=== PATIENT | female | born 1945 | race African-American/Black ===

== ENCOUNTER 2022-10-30 17:16 | Inpatient (IN) | payer OTHER, MEDICAID ==
[~2022-10-30] VITALS: Ht 154.9 cm; Wt 49.0 kg
[2022-10-30 18:22] LABS: BASOPHILS % 1.6 % (0.0-2.0); DIFFERENTIAL COMMENT 0; EOSINOPHILS % 0.8 % (0.0-5.0); HEMOGLOBIN. 15.1 g/dL (12.0-16.0); LYMPHOCYTES % 20.9 % (20.0-50.0); MEAN CORPUSCULAR HGB CONC 31.5 g/dL (31.0-37.0); MEAN CORPUSCULAR VOLUME 92.1 fL (81.0-99.0); MEAN PLATELET VOLUME 11.2 fl (7.4-10.4); MONOCYTES % 8.1 % (2.0-8.0); NEUTROPHILS % 68.6 % (40.0-76.0); PLATELET 145 x1000/uL (130-400); RED CELL DISTRIBUTION WIDTH 16.7 % (11.6-14.6); WHITE BLOOD COUNT 6.9 x1000/uL (4.5-11.0)
[2022-10-30 18:30] LABS: PROTHROMBIN TIME 10.8 sec (9.6-11.0)
[2022-10-30 18:44] LABS: CHLORIDE 116 mEq/L (98-107); INDEX HEMOLYSI 1 (1-3); INDEX ICTERIC 1 (1-4); INDEX LIPEMIC 1 (1-3); POTASSIUM 4.7 mEq/L (3.5-5.1); SODIUM 143 mEq/L (136-145)
[2022-10-30 18:54] LABS: ALANINE AMINOTRANSFERASE 23 IU/L (13-61); ALBUMIN 3.9 g/dL (3.4-5.0); ASPARTATE AMINOTRANSFERASE 29 IU/L (15-37); BILIRUBIN TOTAL 0.5 mg/dL (0.1-1.0); CALCIUM 9.7 mg/dL (8.5-10.1); CARBON DIOXIDE 23 mEq/L (21-32); CREATININE 1.7 mg/dL (0.6-1.3); GLUCOSE 89 mg/dL (70-105); PROTEIN TOTAL 8.2 g/dL (6.0-8.3); UREA NITROGEN BLOOD 68 mg/dL (7-21)
[2022-10-30 19:12] LABS: TROPONIN I HIGH SENSITIVITY 409 ng/L (<54)
[2022-10-30] MEDS ORDERED: LABETALOL 5MG/ML SYR 20 MG/4 ML SYRINGE IV ONE ×2 (20:00→22:15)
[2022-10-30] MEDS ORDERED: ASPIRIN 325MG TABLET PO ONE (21:30)
[2022-10-30] MEDS ORDERED: NITROGLYCERIN 50MG PREMIX 250 ML IV ONE (23:30)
[2022-10-30] MEDS ORDERED: NITROGLYCERIN 50 MG in DEXT 5% WATER 250 ML IV NR (23:45)
[2022-10-31] VITALS (14 sets, daily range): BP systolic 118–245; BP diastolic 75–164; PULSE 57–71; RESP 11–24; TEMP 96.5–98.6
[2022-10-31 07:25] LABS: TROPONIN I HIGH SENSITIVITY 475 ng/L (<54)
[2022-10-31] MEDS: CLONIDINE 0.1MG TABLET PO SCH ×3 (08:12→21:54)
[2022-10-31] MEDS ORDERED: NITROGLYCERIN 50 MG PREMIX 250 ML IV SCH (08:30)
[2022-10-31] MEDS: AMLODIPINE 10MG TABLET PO SCH (10:15)
[2022-10-31] MEDS: LABETALOL HCL 300MG TABLET PO SCH ×2 (10:15→21:53)
[2022-10-31] MEDS ORDERED: ACETAMINOPHEN 325MG TABLET PO PRN (10:45)
[2022-10-31] MEDS ORDERED: IPRATROPIUM/ALBUTEROL 0.5-3(2.5)MG/3ML NEB HHN PRN (10:45)
[2022-10-31] MEDS ORDERED: DOCUSATE SODIUM 100MG CAPSULE PO PRN (10:45)
[2022-10-31] MEDS ORDERED: ONDANSETRON HCL 4MG/2ML INJ IV PRN (10:45)
[2022-10-31] MEDS ORDERED: ACETAMINOPHEN 650MG/20.3ML UDC GT PRN (10:45)
[2022-10-31 12:42] LABS: BASOPHILS % 1.5 % (0.0-2.0); DIFFERENTIAL COMMENT 0; EOSINOPHILS % 3.3 % (0.0-5.0); HEMATOCRIT. 40.4 % (36.0-48.0); HEMOGLOBIN. 12.8 g/dL (12.0-16.0); LYMPHOCYTES % 27.4 % (20.0-50.0); MEAN CORPUSCULAR HEMOGLOBIN 28.8 pg (28.0-32.0); MEAN CORPUSCULAR HGB CONC 31.7 g/dL (31.0-37.0); MEAN PLATELET VOLUME 11.2 fl (7.4-10.4); MONOCYTES % 9.6 % (2.0-8.0); NEUTROPHILS % 58.2 % (40.0-76.0); PLATELET 123 x1000/uL (130-400); RED BLOOD CELL COUNT 4.44 mill/uL (4.2-5.4); RED CELL DISTRIBUTION WIDTH 16.2 % (11.6-14.6); WHITE BLOOD COUNT 4.5 x1000/uL (4.5-11.0)
[2022-10-31 13:02] LABS: CALCIUM 8.5 mg/dL (8.5-10.1); CREATINE KINASE MB FRACTION 5.1 ng/mL (0.5-3.6); CREATININE 1.4 mg/dL (0.6-1.3)
[2022-10-31] MEDS: HYDRALAZINE HCL 100MG TABLET PO SCH ×2 (15:31→21:53)
[2022-11-01] VITALS (12 sets, daily range): BP systolic 134–202; BP diastolic 17–86; PULSE 61–72; RESP 13–19; TEMP 97.4–98.4
[2022-11-01] MEDS: HYDRALAZINE 20MG/ML VIAL IV PRN ×3 (01:21→16:20)
[2022-11-01] MEDS: CLONIDINE 0.1MG TABLET PO SCH ×3 (06:48→22:08)
[2022-11-01] MEDS: HYDRALAZINE HCL 100MG TABLET PO SCH ×3 (06:48→22:08)
[2022-11-01] MEDS: AMLODIPINE 10MG TABLET PO SCH (10:17)
[2022-11-01] MEDS: LABETALOL HCL 300MG TABLET PO SCH ×2 (10:18→22:07)
[2022-11-01 11:21] LABS: BASOPHILS % 1.1 % (0.0-2.0); DIFFERENTIAL COMMENT 0; EOSINOPHILS % 4.3 % (0.0-5.0); HEMATOCRIT. 40.6 % (36.0-48.0); HEMOGLOBIN. 12.9 g/dL (12.0-16.0); MEAN CORPUSCULAR HEMOGLOBIN 28.8 pg (28.0-32.0); MEAN CORPUSCULAR HGB CONC 31.8 g/dL (31.0-37.0); MEAN CORPUSCULAR VOLUME 90.8 fL (81.0-99.0); MEAN PLATELET VOLUME 11.5 fl (7.4-10.4); MONOCYTES % 9.3 % (2.0-8.0); NEUTROPHILS % 56.3 % (40.0-76.0); PLATELET 117 x1000/uL (130-400); RED BLOOD CELL COUNT 4.47 mill/uL (4.2-5.4); RED CELL DISTRIBUTION WIDTH 16.4 % (11.6-14.6); WHITE BLOOD COUNT 4.2 x1000/uL (4.5-11.0)
[2022-11-01 12:26] LABS: POTASSIUM 4.3 mEq/L (3.5-5.1)
[2022-11-01 12:35] LABS: CALCIUM 8.4 mg/dL (8.5-10.1)
[2022-11-01 15:08] LABS: HEPATITIS B SURFACE ANTIGEN NEGATIVE
[2022-11-01 15:35] LABS: HEPATITIS C VIR.AB 0.14 INDEXVAL (0.00-0.80)
[2022-11-01 15:36] LABS: HEPATITIS B CORE AB IGM NEGATIVE
[2022-11-01 15:38] LABS: HEPATITIS A AB IGM NEGATIVE (NEGATIVE)
[2022-11-02] VITALS (15 sets, daily range): BP systolic 126–170; BP diastolic 58–80; PULSE 60–69; RESP 10–28; TEMP 97.4–98.1; O2SAT 99
[2022-11-02] MEDS: HYDRALAZINE 20MG/ML VIAL IV PRN (04:49)
[2022-11-02] MEDS: CLONIDINE 0.1MG TABLET PO SCH ×2 (05:54→15:14)
[2022-11-02] MEDS: HYDRALAZINE HCL 100MG TABLET PO SCH ×2 (05:54→15:13)
[2022-11-02 07:50] LABS: BASOPHILS % 1.4 % (0.0-2.0); DIFFERENTIAL COMMENT 0; EOSINOPHILS % 5.6 % (0.0-5.0); HEMOGLOBIN. 13.1 g/dL (12.0-16.0); LYMPHOCYTES % 37.4 % (20.0-50.0); MEAN CORPUSCULAR HEMOGLOBIN 29.2 pg (28.0-32.0); MEAN CORPUSCULAR HGB CONC 31.8 g/dL (31.0-37.0); MEAN CORPUSCULAR VOLUME 91.9 fL (81.0-99.0); MEAN PLATELET VOLUME 11.9 fl (7.4-10.4); MONOCYTES % 10.2 % (2.0-8.0); NEUTROPHILS % 45.4 % (40.0-76.0); PLATELET 117 x1000/uL (130-400); RED BLOOD CELL COUNT 4.47 mill/uL (4.2-5.4); RED CELL DISTRIBUTION WIDTH 16.9 % (11.6-14.6); WHITE BLOOD COUNT 3.9 x1000/uL (4.5-11.0)
[2022-11-02] MEDS: AMLODIPINE 10MG TABLET PO SCH (08:47)
[2022-11-02] MEDS: LABETALOL HCL 300MG TABLET PO SCH (08:47)
[2022-11-02 08:59] LABS: POTASSIUM 4.5 mEq/L (3.5-5.1)
[2022-11-02 09:06] LABS: CALCIUM 8.3 mg/dL (8.5-10.1); CREATININE 3.3 mg/dL (0.6-1.3)
[2022-11-02] MEDS ORDERED: ALTEPLASE 100MG/VIAL IV STA (13:35)
[2022-11-02] MEDS ORDERED: ALTEPLASE 2MG/VIAL ITC NR (13:45)
== END 2022-11-02 18:00 | DRG 280 ==
LOC: ER 17:16 → EDBEDREQTM 21:46 → EDBEDREQ 21:46 → MICUSO 23:24 → EDBEDREQSVC 10-31 00:58 → MICUSO 10-31 11:12 → 5EST 10-31 13:32
PROVIDERS: ADMIT Internal Medicine; ATTEND Internal Medicine
PROC: 5A1D70Z Performance of Urinary Filtration, Intermittent, Less than 6 Hours Per Day (ICD-10-PCS; principal; 2022-10-31)
PROC: 5A1D70Z Performance of Urinary Filtration, Intermittent, Less than 6 Hours Per Day (ICD-10-PCS; 2022-11-02)
DX: I13.2 Hypertensive heart and chronic kidney disease with heart failure and with stage 5 chronic kidney disease, or end stage renal disease (principal); I50.23 Acute on chronic systolic (congestive) heart failure; I21.A1 Myocardial infarction type 2; N18.6 End stage renal disease; G93.40 Encephalopathy, unspecified; I16.1 Hypertensive emergency; Z20.822 Contact with and (suspected) exposure to COVID-19; D64.9 Anemia, unspecified; I45.10 Unspecified right bundle-branch block; G89.29 Other chronic pain; Z86.73 Personal history of transient ischemic attack (TIA), and cerebral infarction without residual deficits; Z99.2 Dependence on renal dialysis
CPT/HCPCS: 36415; 71045; 73521; 76604; 80048; 80053; 80061; 82550; 82553; 82962; 83880; 84484; 85025; 86705; 86709; 86803; 87340; 87426; 90935; 93005; 93306; 93880; 97162; 97166; 99291; J0360; J2997; J3490; J7060

== ENCOUNTER 2023-08-09 13:46 | Inpatient (IN) | payer OTHER, MEDICAID ==
[~2023-08-09] VITALS: Ht 154.9 cm; Wt 43.5 kg
[2023-08-09] VITALS (11 sets, daily range): BP systolic 77–220; BP diastolic 54–105; PULSE 70–81; RESP 13–22; TEMP 99.1; O2SAT 98–100
[2023-08-09] MEDS: HYDRALAZINE 20MG/ML VIAL IV ONE (14:05)
[2023-08-09 14:22] LABS: BASOPHILS % 1.4 % (0.0-2.0); DIFFERENTIAL COMMENT 0; EOSINOPHILS % 0.9 % (0.0-5.0); HEMATOCRIT. 31.1 % (36.0-48.0); HEMOGLOBIN. 9.7 g/dL (12.0-16.0); LYMPHOCYTES % 19.5 % (20.0-50.0); MEAN CORPUSCULAR HEMOGLOBIN 29.7 pg (28.0-32.0); MEAN CORPUSCULAR HGB CONC 31.2 g/dL (31.0-37.0); MEAN CORPUSCULAR VOLUME 95.1 fL (81.0-99.0); MEAN PLATELET VOLUME 11.3 fl (7.4-10.4); MONOCYTES % 11.7 % (2.0-8.0); NEUTROPHILS % 66.5 % (40.0-76.0); PLATELET 179 x1000/uL (130-400); RED BLOOD CELL COUNT 3.27 mill/uL (4.2-5.4); RED CELL DISTRIBUTION WIDTH 14.2 % (11.6-14.6); WHITE BLOOD COUNT 5.6 x1000/uL (4.5-11.0)
[2023-08-09 14:30] LABS: CHLORIDE 94 mEq/L (98-107); SODIUM 130 mEq/L (136-145)
[2023-08-09 14:31] LABS: CARBON DIOXIDE 30 mEq/L (21-32)
[2023-08-09 14:32] LABS: CALCIUM 9.7 mg/dL (8.7-10.4)
[2023-08-09] MEDS: LABETALOL 5MG/ML 4ML INJ IV ONE (14:32)
[2023-08-09 14:36] LABS: GLUCOSE 95 mg/dL (70-105)
[2023-08-09 14:37] LABS: UREA NITROGEN BLOOD 28 mg/dL (9-23)
[2023-08-09 14:38] LABS: TROPONIN I HIGH SENSITIVITY 34 ng/L (3.0-34)
[2023-08-09 14:55] LABS: ETHANOL BLOOD < 10 mg/dL (<10)
[2023-08-09 14:57] LABS: POTASSIUM 6.5 mEq/L (3.5-5.1)
[2023-08-09 14:58] LABS: CREATININE 5.7 mg/dL (0.6-1.0)
[2023-08-09] MEDS ORDERED: CALCIUM GLUCONATE 1,000 MG in DEXT 5% WATER 100 ML IV ONE (15:15)
[2023-08-09] MEDS ORDERED: INSULIN REGULAR (HUMULIN R) 1000UNITS/10ML VIAL IV ONE (15:15)
[2023-08-09] MEDS ORDERED: NITROGLYCERIN 50MG PREMIX 250 ML IV ONE (15:15)
[2023-08-09] MEDS: NITROGLYCERIN 50MG PREMIX 250 ML IV PRN (15:24)
[2023-08-09] MEDS: CALCIUM GLUCONATE 1GM PREMIX 50 ML IV NR (15:37)
[2023-08-09] MEDS: DEXTROSE 50% WATER 50ML SYRINGE IV ONE (15:49)
[2023-08-09] MEDS: INSULIN REGULAR (HUMULIN R) 1000UNITS/10ML VIAL IV ONE (16:03)
[2023-08-09] MEDS: SODIUM BICARBONATE 8.4% 1 MEQ/ML 50ML SYR IV ONE (16:10)
[2023-08-09] MEDS: ALBUTEROL (0.083%) 2.5MG/3ML NEB HHN SCH (16:40)
[2023-08-09 18:22] LABS: HEPATITIS B SURFACE ANTIGEN NEGATIVE (Negative)
[2023-08-09 18:42] LABS: HEPATITIS A AB IGM NEGATIVE (Negative)
[2023-08-09 18:43] LABS: HEPATITIS B CORE AB IGM NEGATIVE (Negative); HEPATITIS C AB NON REACTIVE (Neg) (Negative)
[2023-08-09] MEDS: CLONIDINE 0.1MG TABLET PO SCH (22:12)
[2023-08-10] VITALS (44 sets, daily range): BP systolic 135–239; BP diastolic 59–162; PULSE 58–93; RESP 6–27; TEMP 97.8–98.1
[2023-08-10 05:18] LABS: HEMATOCRIT. 28.7 % (36.0-48.0); HEMOGLOBIN. 9.1 g/dL (12.0-16.0); MEAN CORPUSCULAR HEMOGLOBIN 30.4 pg (28.0-32.0); MEAN CORPUSCULAR HGB CONC 31.7 g/dL (31.0-37.0); MEAN CORPUSCULAR VOLUME 95.8 fL (81.0-99.0); MEAN PLATELET VOLUME 11.3 fl (7.4-10.4); PLATELET 148 x1000/uL (130-400); RED BLOOD CELL COUNT 2.99 mill/uL (4.2-5.4); RED CELL DISTRIBUTION WIDTH 13.8 % (11.6-14.6); WHITE BLOOD COUNT 7.1 x1000/uL (4.5-11.0)
[2023-08-10 05:22] LABS: DIFFERENTIAL COMMENT 1
[2023-08-10 05:25] LABS: CHLORIDE 94 mEq/L (98-107); POTASSIUM 5.3 mEq/L (3.5-5.1); SODIUM 130 mEq/L (136-145)
[2023-08-10 05:26] LABS: CALCIUM 9.7 mg/dL (8.7-10.4); CARBON DIOXIDE 28 mEq/L (21-32)
[2023-08-10 05:31] LABS: GLUCOSE 95 mg/dL (70-105); UREA NITROGEN BLOOD 34 mg/dL (9-23)
[2023-08-10 05:33] LABS: ALANINE AMINOTRANSFERASE < 7 IU/L (10-49); ALBUMIN 4.1 g/dL (3.2-4.8); ASPARTATE AMINOTRANSFERASE 18 IU/L (<34); BILIRUBIN TOTAL 0.3 mg/dL (0.1-1.0); PROTEIN TOTAL 6.8 g/dL (6.0-8.3)
[2023-08-10 06:22] LABS: ATYPICAL LYMPHOCYTES 2; OVALOCYTES 2+; PLATELET ESTIMATE NORMAL
[2023-08-10 07:13] LABS: CREATININE 6.8 mg/dL (0.6-1.0)
[2023-08-10] MEDS: FAMOTIDINE 20MG TABLET PO SCH (09:45)
[2023-08-10] MEDS: HEPARIN 5000 UNITS/ML VIAL SUBCUT SCH (09:45)
[2023-08-10] MEDS: FOLIC ACID/VITAMIN B COMP W-C TABLET PO SCH (14:52)
[2023-08-10] MEDS: NIFEDIPINE XL 60MG TAB PO SCH (14:52)
[2023-08-10] MEDS ORDERED: HYDROCODONE/ACETAMINOPHEN 5/325MG TABLET PO PRN (16:45)
[2023-08-10] MEDS ORDERED: IPRATROPIUM/ALBUTEROL 0.5-3(2.5)MG/3ML NEB HHN PRN (16:45)
[2023-08-10] MEDS ORDERED: ONDANSETRON HCL 4MG/2ML INJ IV PRN (16:45)
[2023-08-10] MEDS: HYDRALAZINE 20MG/ML VIAL IV PRN (17:06)
[2023-08-10] MEDS: EPOETIN ALFA-EPBX 4,000 UNIT/ML VIAL SUBCUT SCH (21:10)
[2023-08-10] MEDS: HYDRALAZINE HCL 50MG TABLET PO SCH (22:10)
[2023-08-11] VITALS (7 sets, daily range): BP systolic 102–177; BP diastolic 50–69; PULSE 72–93; RESP 17–20; TEMP 97.5–98.5; O2SAT 98
[2023-08-11 11:22] LABS: BASOPHILS % 1.4 % (0.0-2.0); EOSINOPHILS % 1.4 % (0.0-5.0); HEMATOCRIT. 30.6 % (36.0-48.0); HEMOGLOBIN. 9.7 g/dL (12.0-16.0); LYMPHOCYTES % 23.9 % (20.0-50.0); MEAN CORPUSCULAR HEMOGLOBIN 30.1 pg (28.0-32.0); MEAN CORPUSCULAR HGB CONC 31.8 g/dL (31.0-37.0); MEAN CORPUSCULAR VOLUME 94.7 fL (81.0-99.0); MONOCYTES % 11.9 % (2.0-8.0); NEUTROPHILS % 61.4 % (40.0-76.0); PLATELET 189 x1000/uL (130-400); RED BLOOD CELL COUNT 3.23 mill/uL (4.2-5.4); RED CELL DISTRIBUTION WIDTH 13.9 % (11.6-14.6); WHITE BLOOD COUNT 6.9 x1000/uL (4.5-11.0)
[2023-08-11 12:06] LABS: CHLORIDE 95 mEq/L (98-107); POTASSIUM 4.6 mEq/L (3.5-5.1); SODIUM 133 mEq/L (136-145)
[2023-08-11 12:07] LABS: CALCIUM 10.2 mg/dL (8.7-10.4); CARBON DIOXIDE 28 mEq/L (21-32)
[2023-08-11 12:12] LABS: GLUCOSE 117 mg/dL (70-105); UREA NITROGEN BLOOD 26 mg/dL (9-23)
[2023-08-11 12:23] LABS: CREATININE 6.4 mg/dL (0.6-1.0)
[2023-08-11] MEDS: SEVELAMER CARBONATE 800 MG TABLET PO SCH (12:58)
[2023-08-11] MEDS ORDERED: NIFE-32 MT (16:53)
[2023-08-11] MEDS ORDERED: HYDR50TA40 MT (16:53)
== END 2023-08-11 16:43 | disposition home or self-care (01) | DRG 640 ==
LOC: ER 13:46 → EDBEDREQ 15:11 → CVICU 17:08 → EDBEDREQ 17:14 → EDBEDREQTM 17:14 → 8WST 08-10 17:25
PROVIDERS: ADMIT Internal Medicine; ATTEND Internal Medicine
PROC: 5A1D70Z Performance of Urinary Filtration, Intermittent, Less than 6 Hours Per Day (ICD-10-PCS; principal; 2023-08-10)
DX: E87.5 Hyperkalemia (principal); N18.6 End stage renal disease; I50.32 Chronic diastolic (congestive) heart failure; I13.2 Hypertensive heart and chronic kidney disease with heart failure and with stage 5 chronic kidney disease, or end stage renal disease; I16.0 Hypertensive urgency; E87.1 Hypo-osmolality and hyponatremia; D63.8 Anemia in other chronic diseases classified elsewhere; Z99.2 Dependence on renal dialysis; Z79.899 Other long term (current) drug therapy
CPT/HCPCS: 36415; 71045; 80048; 80051; 80053; 80320; 84484; 85025; 86705; 86709; 87340; 90935; 93005; 94640; 99291; 99292; J0360; J0610; J0885; J1644; J1815; J3490; J7060; G0480

== ENCOUNTER 2023-08-22 21:33 | Emergency (ER) | payer OTHER, MEDICAID ==
[~2023-08-22] VITALS: Ht 157.5 cm; Wt 54.0 kg
[~2023-08-22 21:33] MED LIST: HYDR50TA40 MT; NIFE-32 MT
[2023-08-22 21:58] VITALS: O2SAT 100
[2023-08-22 23:12] LABS: HEMATOCRIT. 31.8 % (36.0-48.0); HEMOGLOBIN. 10.2 g/dL (12.0-16.0); MEAN CORPUSCULAR HEMOGLOBIN 30.3 pg (28.0-32.0); MEAN CORPUSCULAR VOLUME 94.7 fL (81.0-99.0); MEAN PLATELET VOLUME 9.9 fl (7.4-10.4); PLATELET 228 x1000/uL (130-400); RED BLOOD CELL COUNT 3.35 mill/uL (4.2-5.4); RED CELL DISTRIBUTION WIDTH 14.2 % (11.6-14.6); WHITE BLOOD COUNT 6.9 x1000/uL (4.5-11.0)
[2023-08-22 23:14] LABS: DIFFERENTIAL COMMENT 1
[2023-08-22 23:15] LABS: POTASSIUM 4.2 mEq/L (3.5-5.1)
[2023-08-22 23:17] LABS: CALCIUM 9.3 mg/dL (8.7-10.4)
[2023-08-22 23:23] LABS: CREATININE 4.4 mg/dL (0.6-1.0)
[2023-08-22] MEDS: ACETAMINOPHEN 325MG TABLET PO ONE (23:58)
[2023-08-23] MEDS ORDERED: ACETAMINOPHEN 325MG TABLET PO ONE
[2023-08-23 00:13] VITALS: BP 175/69; PULSE 65; RESP 16; TEMP 98.3
[2023-08-23 00:35] LABS: PLATELET ESTIMATE NORMAL
== END 2023-08-23 00:30 | disposition home or self-care (01) ==
LOC: ER 21:33
DX: R51.9 Headache, unspecified (principal); I10 Essential (primary) hypertension; I12.0 Hypertensive chronic kidney disease with stage 5 chronic kidney disease or end stage renal disease; N18.6 End stage renal disease; Z99.2 Dependence on renal dialysis; Z98.890 Other specified postprocedural states
CPT/HCPCS: 36415; 80048; 85025; 99283

== ENCOUNTER 2023-10-01 18:33 | Inpatient (IN) | payer OTHER, MEDICAID ==
[~2023-10-01] VITALS: Ht 154.9 cm; Wt 55.3 kg
[2023-10-01] VITALS (7 sets, daily range): BP systolic 151–282; BP diastolic 89–131; PULSE 65–169; RESP 14–65; TEMP 37.39188; O2SAT 92–98
[2023-10-01] MEDS: LABETALOL 5MG/ML 4ML INJ IV ONE (19:27)
[2023-10-01 20:01] LABS: BASOPHILS % 1.8 % (0.0-2.0); DIFFERENTIAL COMMENT 0; EOSINOPHILS % 0.4 % (0.0-5.0); HEMATOCRIT. 40.2 % (36.0-48.0); HEMOGLOBIN. 12.9 g/dL (12.0-16.0); LYMPHOCYTES % 16.6 % (20.0-50.0); MEAN CORPUSCULAR HEMOGLOBIN 30.3 pg (28.0-32.0); MEAN CORPUSCULAR VOLUME 94.8 fL (81.0-99.0); MONOCYTES % 10.3 % (2.0-8.0); NEUTROPHILS % 70.9 % (40.0-76.0); PLATELET 227 x1000/uL (130-400); RED BLOOD CELL COUNT 4.24 mill/uL (4.2-5.4); WHITE BLOOD COUNT 6.5 x1000/uL (4.5-11.0)
[2023-10-01 20:03] LABS: CHLORIDE 97 mEq/L (98-107); SODIUM 129 mEq/L (136-145)
[2023-10-01 20:04] LABS: CARBON DIOXIDE 23 mEq/L (21-32)
[2023-10-01 20:05] LABS: CALCIUM 9.9 mg/dL (8.7-10.4)
[2023-10-01 20:09] LABS: GLUCOSE 88 mg/dL (70-105)
[2023-10-01 20:10] LABS: UREA NITROGEN BLOOD 76 mg/dL (9-23)
[2023-10-01 20:11] LABS: ALANINE AMINOTRANSFERASE 8 IU/L (10-49); ALBUMIN 4.6 g/dL (3.2-4.8); ASPARTATE AMINOTRANSFERASE 28 IU/L (<34)
[2023-10-01 20:12] LABS: BILIRUBIN TOTAL 0.2 mg/dL (0.1-1.0); PROTEIN TOTAL 7.9 g/dL (6.0-8.3)
[2023-10-01 20:19] LABS: POTASSIUM 7.1 mEq/L (3.5-5.1); TROPONIN I HIGH SENSITIVITY 182 ng/L (3.0-34)
[2023-10-01 20:20] LABS: CREATININE 8.8 mg/dL (0.6-1.0)
[2023-10-01] MEDS ORDERED: INSULIN REGULAR (HUMULIN R) 1000UNITS/10ML VIAL IV ONE (20:30)
[2023-10-01] MEDS ORDERED: DEXTROSE 50% WATER 50ML SYRINGE IV ONE (20:30)
[2023-10-01] MEDS ORDERED: FUROSEMIDE 100MG/10ML VIAL IV ONE (20:30)
[2023-10-01] MEDS: CALCIUM CHLORIDE 1,000 MG in DEXT 5% WATER 100 ML IV ONE (21:00)
[2023-10-01 23:15] LABS: TROPONIN I HIGH SENSITIVITY 220 ng/L (3.0-34)
[2023-10-01] MEDS: CLONIDINE 0.1MG TABLET PO NR (23:31)
[2023-10-01] MEDS: DEXTROSE 50% WATER 50ML SYRINGE IV NR (23:41)
[2023-10-01] MEDS: INSULIN REGULAR (HUMULIN R) 1000UNITS/10ML VIAL IV NR (23:41)
[2023-10-01] MEDS: FUROSEMIDE 40MG/4ML VIAL IV NR (23:42)
[2023-10-02] VITALS (8 sets, daily range): BP systolic 116–218; BP diastolic 58–113; PULSE 62–82; RESP 13–20; TEMP 36.114–37.11408; O2SAT 98–100
[2023-10-02 01:18] LABS: HEPATITIS B SURFACE ANTIGEN NEGATIVE (Negative)
[2023-10-02 01:39] LABS: HEPATITIS A AB IGM NEGATIVE (Negative); HEPATITIS B CORE AB IGM NEGATIVE (Negative)
[2023-10-02 01:40] LABS: HEPATITIS C AB NON REACTIVE (Neg) (Negative)
[2023-10-02 03:26] LABS: CHLORIDE 107 mEq/L (98-107); POTASSIUM 4.2 mEq/L (3.5-5.1); SODIUM 140 mEq/L (136-145)
[2023-10-02 03:27] LABS: CARBON DIOXIDE 24 mEq/L (21-32)
[2023-10-02 03:28] LABS: CALCIUM 9.4 mg/dL (8.7-10.4)
[2023-10-02 03:32] LABS: GLUCOSE 75 mg/dL (70-105)
[2023-10-02 03:33] LABS: UREA NITROGEN BLOOD 34 mg/dL (9-23)
[2023-10-02 03:34] LABS: ALANINE AMINOTRANSFERASE < 7 IU/L (10-49); ALBUMIN 3.9 g/dL (3.2-4.8); ASPARTATE AMINOTRANSFERASE 24 IU/L (<34)
[2023-10-02 03:35] LABS: BILIRUBIN TOTAL 0.3 mg/dL (0.1-1.0); PROTEIN TOTAL 6.9 g/dL (6.0-8.3)
[2023-10-02 03:39] LABS: CREATININE 5.9 mg/dL (0.6-1.0)
[2023-10-02] MEDS: CLONIDINE 0.1MG TABLET PO PRN ×2 (03:49→06:11)
[2023-10-02 07:46] LABS: CHLORIDE 109 mEq/L (98-107); POTASSIUM 4.6 mEq/L (3.5-5.1); SODIUM 138 mEq/L (136-145)
[2023-10-02 07:48] LABS: CARBON DIOXIDE 24 mEq/L (21-32)
[2023-10-02] MEDS: HYDRALAZINE 20MG/ML VIAL IV PRN (08:07)
[2023-10-02] MEDS: AMLODIPINE 5MG TABLET PO SCH (08:07)
[2023-10-02] MEDS: SEVELAMER CARBONATE 800 MG TABLET PO SCH (11:53)
[2023-10-02] MEDS: FOLIC ACID/VITAMIN B COMP W-C TABLET PO SCH (11:54)
[2023-10-02] MEDS ORDERED: ONDANSETRON HCL 4MG/2ML INJ IV PRN (12:00)
[2023-10-02] MEDS: SODIUM CHLORIDE 0.9% 3ML FLUSH IVF SCH (14:00)
[2023-10-02] MEDS: ASPIRIN 81MG TABLET PO SCH (15:58)
[2023-10-02] MEDS: NIFEDIPINE XL 60MG TAB PO SCH (20:34)
[2023-10-02] MEDS: ATORVASTATIN CALCIUM 20MG TABLET PO SCH (20:35)
[2023-10-03] VITALS (14 sets, daily range): BP systolic 106–199; BP diastolic 65–84; PULSE 64–86; RESP 17–20; TEMP 36.00288–37.39188; O2SAT 97–100
[2023-10-03 07:12] LABS: POTASSIUM 4.9 mEq/L (3.5-5.1)
[2023-10-03 07:14] LABS: CALCIUM 9.1 mg/dL (8.7-10.4)
[2023-10-03 07:34] LABS: CREATININE 7.7 mg/dL (0.6-1.0)
[2023-10-03 07:45] LABS: HEMATOCRIT. 31.4 % (36.0-48.0); HEMOGLOBIN. 10.1 g/dL (12.0-16.0); MEAN CORPUSCULAR HEMOGLOBIN 30.4 pg (28.0-32.0); MEAN CORPUSCULAR HGB CONC 32.2 g/dL (31.0-37.0); MEAN CORPUSCULAR VOLUME 94.3 fL (81.0-99.0); MEAN PLATELET VOLUME 11.2 fl (7.4-10.4); PLATELET 179 x1000/uL (130-400); RED BLOOD CELL COUNT 3.33 mill/uL (4.2-5.4); RED CELL DISTRIBUTION WIDTH 14.6 % (11.6-14.6); WHITE BLOOD COUNT 4.8 x1000/uL (4.5-11.0)
[2023-10-03 07:54] LABS: DIFFERENTIAL COMMENT 1
[2023-10-03] MEDS ORDERED: AMLODIPINE 10MG TABLET PO SCH (09:00)
[2023-10-03 14:06] LABS: PLATELET ESTIMATE NORMAL
== END 2023-10-03 21:30 | disposition home or self-care (01) | DRG 291 ==
LOC: ER 18:33 → 8WST 20:43 → EDBEDREQ 20:44 → EDBEDREQSVC 22:24 → EDBEDREQTM 22:24
PROVIDERS: ADMIT Internal Medicine; ATTEND Internal Medicine
PROC: 5A1D70Z Performance of Urinary Filtration, Intermittent, Less than 6 Hours Per Day (ICD-10-PCS; principal; 2023-10-01)
PROC: 5A1D70Z Performance of Urinary Filtration, Intermittent, Less than 6 Hours Per Day (ICD-10-PCS; 2023-10-03)
DX: I13.2 Hypertensive heart and chronic kidney disease with heart failure and with stage 5 chronic kidney disease, or end stage renal disease (principal); I50.33 Acute on chronic diastolic (congestive) heart failure; N18.6 End stage renal disease; G93.40 Encephalopathy, unspecified; I16.0 Hypertensive urgency; Z99.2 Dependence on renal dialysis; E87.5 Hyperkalemia; E83.42 Hypomagnesemia; D64.9 Anemia, unspecified; E78.5 Hyperlipidemia, unspecified; I45.10 Unspecified right bundle-branch block; Z79.899 Other long term (current) drug therapy
CPT/HCPCS: 36415; 71045; 80048; 80051; 80053; 82962; 83735; 84484; 85025; 86705; 86709; 87340; 90935; 93005; 93306; 93880; 99285; J0360; J1815; J1940; J3490; J7060

== ENCOUNTER 2023-12-06 15:51 | Inpatient (IN) | payer OTHER, MEDICAID, MEDICARE ==
[~2023-12-06] VITALS: Ht 154.9 cm; Wt 56.4 kg
[2023-12-06 16:38] LABS: DIFFERENTIAL COMMENT 1; HEMATOCRIT. 36.4 % (36.0-48.0); HEMOGLOBIN. 11.6 g/dL (12.0-16.0); MEAN CORPUSCULAR HEMOGLOBIN 30.9 pg (28.0-32.0); MEAN CORPUSCULAR VOLUME 96.6 fL (81.0-99.0); MEAN PLATELET VOLUME 11.6 fl (7.4-10.4); PLATELET 128 x1000/uL (130-400); RED BLOOD CELL COUNT 3.77 mill/uL (4.2-5.4); RED CELL DISTRIBUTION WIDTH 14.9 % (11.6-14.6); WHITE BLOOD COUNT 4.7 x1000/uL (4.5-11.0)
[2023-12-06] MEDS: LABETALOL 5MG/ML 4ML INJ IV ONE ×2 (16:39→18:52)
[2023-12-06 16:46] LABS: CHLORIDE 102 mEq/L (98-107); POTASSIUM 4.7 mEq/L (3.5-5.1); SODIUM 137 mEq/L (136-145)
[2023-12-06 16:47] LABS: CALCIUM 9.5 mg/dL (8.7-10.4); CARBON DIOXIDE 26 mEq/L (21-32)
[2023-12-06 16:52] LABS: GLUCOSE 78 mg/dL (70-105); UREA NITROGEN BLOOD 31 mg/dL (9-23)
[2023-12-06 16:53] LABS: TROPONIN I HIGH SENSITIVITY 29 ng/L (3.0-34)
[2023-12-06 17:36] LABS: PLATELET ESTIMATE DECREASED
[2023-12-06] MEDS: CLONIDINE 0.1MG TABLET PO ONE (18:52)
[2023-12-06] MEDS: CLONIDINE 0.1MG TABLET PO PRN (23:42)
[2023-12-07] MEDS ORDERED: HYDRALAZINE 20MG/ML VIAL IV PRN (01:45)
[2023-12-07] MEDS ORDERED: DOCUSATE SODIUM 100MG CAPSULE PO PRN (01:45)
[2023-12-07] MEDS: HYDRALAZINE HCL 50MG TABLET PO SCH (02:40)
[2023-12-07] MEDS: NIFEDIPINE XL 90MG TAB PO SCH (03:28)
[2023-12-07] MEDS: CLONIDINE 0.2MG TABLET PO SCH (06:12)
[2023-12-07] MEDS: MINOXIDIL 2.5MG TABLET PO SCH (07:03)
[2023-12-07] MEDS: ASPIRIN 81MG EC TABLET PO SCH (08:20)
[2023-12-07] MEDS: LABETALOL HCL 200MG TABLET PO SCH (08:20)
[2023-12-07] MEDS: FUROSEMIDE 40MG TABLET PO SCH (08:20)
[2023-12-07] MEDS: HEPARIN 5000 UNITS/ML VIAL SUBCUT SCH (09:00)
[2023-12-07] MEDS ORDERED: IPRATROPIUM/ALBUTEROL 0.5-3(2.5)MG/3ML NEB HHN PRN (10:00)
[2023-12-07] MEDS ORDERED: ONDANSETRON HCL 4MG/2ML INJ IV PRN (10:00)
[2023-12-07] MEDS ORDERED: ACETAMINOPHEN 325MG TABLET PO PRN ×2 (10:00)
[2023-12-07 11:24] LABS: CREATINE KINASE MB FRACTION 3.4 ng/mL (0.5-3.6)
[2023-12-07 11:29] LABS: T4 FREE 1.05 ng/dL (0.89-1.76); THYROID STIMULATING HORMONE 3.07 uIU/mL (0.55-4.78)
[2023-12-07 20:00] VITALS: BP 169/65; PULSE 63; RESP 20; TEMP 35.89176; O2SAT 99
[2023-12-07 22:47] VITALS: BP 169/65; PULSE 63; RESP 20; TEMP 35.9176
[2023-12-07 23:23] LABS: CLARITY URINE TURBID (CLEAR); COLOR URINE YELLOW (YELLOW); GLUCOSE URINE NEGATIVE (NEGATIVE); KETONES URINE NEGATIVE (NEGATIVE); LEUKOCYTE ESTERASE URINE 3+ (NEGATIVE); NITRITE URINE NEGATIVE (NEGATIVE); OCCULT BLOOD URINE NEGATIVE (NEGATIVE); PROTEIN URINE 2+ (NEGATIVE); SPECIFIC GRAVITY URINE 1.016 (1.005-1.030); UROBILINOGEN URINE 0.2 E.U./dL (0.2-1.0)
[2023-12-07 23:34] LABS: *AMPHETAMINES SCREEN URINE NEGATIVE (NEGATIVE); *BARBITURATES SCREEN URINE NEGATIVE (NEGATIVE); *BENZODIAZEPINES SCREEN URINE NEGATIVE (NEGATIVE); *COCAINE SCREEN URINE NEGATIVE (NEGATIVE); METHADONE URINE SCREEN NEGATIVE (NEGATIVE); OPIATES URINE SCREEN NEGATIVE (NEGATIVE)
[2023-12-07 23:35] LABS: CANNABINOID URINE SCREEN NEGATIVE (NEGATIVE); ECSTASY MDMA SCREEN URINE CONF.TEST INDICATED (NEGATIVE); PHENCYCLIDINE URINE SCREEN NEGATIVE (NEGATIVE)
[2023-12-08] VITALS (13 sets, daily range): BP systolic 110–155; BP diastolic 41–65; PULSE 64–71; RESP 16–19; TEMP 36.114–37.05852; O2SAT 98–100
[2023-12-08] MEDS ORDERED: SEVE800T8 MT (00:30)
[2023-12-08] MEDS ORDERED: LABE100T8 PO (00:30)
[2023-12-08] MEDS ORDERED: DIVA-75 PO (00:30)
[2023-12-08] MEDS ORDERED: CLON0.2T PO (00:30)
[2023-12-08] MEDS ORDERED: GABA-529 PO (00:30)
[2023-12-08] MEDS ORDERED: SPIR100T5 PO (00:30)
[2023-12-08] MEDS ORDERED: LOSA100T33 PO (00:30)
[2023-12-08] MEDS ORDERED: LOPE2CAP MT (00:30)
[2023-12-08] MEDS ORDERED: ASPI-1406 PO (00:30)
[2023-12-08] MEDS ORDERED: FURO40TA5 PO (00:30)
[2023-12-08 01:32] LABS: SQUAMOUS EPITHELIAL CELL URINE 1+ /lpf (RARE/1+)
[2023-12-08 01:33] LABS: WBC URINE 15-25 /hpf (0-2)
[2023-12-08 01:37] LABS: BACTERIA URINE 2+; RBC URINE 0-2 /hpf (0-2)
[2023-12-08 07:45] LABS: PROTHROMBIN TIME 10.9 sec (9.6-11.0)
[2023-12-08 07:49] LABS: CHLORIDE 101 mEq/L (98-107); POTASSIUM 5.7 mEq/L (3.5-5.1); SODIUM 137 mEq/L (136-145)
[2023-12-08 07:51] LABS: CALCIUM 9.1 mg/dL (8.7-10.4); CARBON DIOXIDE 25 mEq/L (21-32)
[2023-12-08 07:54] LABS: UREA NITROGEN BLOOD 67 mg/dL (9-23)
[2023-12-08 07:56] LABS: GLUCOSE 104 mg/dL (70-105)
[2023-12-08 07:57] LABS: ALANINE AMINOTRANSFERASE < 7 IU/L (10-49)
[2023-12-08 07:58] LABS: ALBUMIN 3.9 g/dL (3.2-4.8); ASPARTATE AMINOTRANSFERASE 14 IU/L (<34); BASOPHILS % 1.9 % (0.0-2.0); DIFFERENTIAL COMMENT 0; EOSINOPHILS % 5.7 % (0.0-5.0); HEMATOCRIT. 33.6 % (36.0-48.0); HEMOGLOBIN. 10.8 g/dL (12.0-16.0); LYMPHOCYTES % 35.2 % (20.0-50.0); MEAN CORPUSCULAR HEMOGLOBIN 30.4 pg (28.0-32.0); MEAN CORPUSCULAR HGB CONC 32.1 g/dL (31.0-37.0); MEAN CORPUSCULAR VOLUME 94.9 fL (81.0-99.0); MEAN PLATELET VOLUME 12.7 fl (7.4-10.4); MONOCYTES % 11.5 % (2.0-8.0); NEUTROPHILS % 45.7 % (40.0-76.0); PLATELET 140 x1000/uL (130-400); RED BLOOD CELL COUNT 3.55 mill/uL (4.2-5.4); RED CELL DISTRIBUTION WIDTH 14.7 % (11.6-14.6); WHITE BLOOD COUNT 4.2 x1000/uL (4.5-11.0)
[2023-12-08 07:59] LABS: BILIRUBIN TOTAL < 0.2 mg/dL (0.1-1.0); PHOSPHORUS 4.7 mg/dL (2.5-4.9)
[2023-12-08 08:17] LABS: HEPATITIS B SURFACE ANTIGEN NEGATIVE (Negative)
[2023-12-08 08:26] LABS: BILIRUBIN DIRECT < 0.1 mg/dL (<=3.0); CREATININE 8.9 mg/dL (0.6-1.0)
[2023-12-08 08:38] LABS: HEPATITIS C AB NON REACTIVE (Neg) (Negative)
[2023-12-08] MEDS ORDERED: CEFTRIAXONE 1GM/50ML 50 ML IV SCH (11:30)
[2023-12-08] MEDS ORDERED: LEVO250T74 MT (11:30)
[2023-12-08] MEDS ORDERED: CEFTRIAXONE 1GM/50ML 50ML IV SCH (13:00)
== END 2023-12-08 15:15 | disposition home or self-care (01) | DRG 304 ==
LOC: ER 15:51 → 5WST 17:41 → EDBEDREQ 18:17 → 7WST 12-07 18:00
PROVIDERS: ADMIT Internal Medicine; ATTEND Internal Medicine
PROC: 5A1D70Z Performance of Urinary Filtration, Intermittent, Less than 6 Hours Per Day (ICD-10-PCS; principal; 2023-12-08)
DX: I16.0 Hypertensive urgency (principal); N18.6 End stage renal disease; N39.0 Urinary tract infection, site not specified; G93.40 Encephalopathy, unspecified; I12.0 Hypertensive chronic kidney disease with stage 5 chronic kidney disease or end stage renal disease; F03.90 Unspecified dementia, unspecified severity, without behavioral disturbance, psychotic disturbance, mood disturbance, and anxiety; D63.1 Anemia in chronic kidney disease; Z99.2 Dependence on renal dialysis
CPT/HCPCS: 36415; 80048; 80076; 80305; 81003; 82550; 82553; 83735; 84100; 84439; 84443; 84480; 84484; 85025; 86705; 87340; 90935; 93005; 99291; J0360; J0696; J1644; J3490

== ENCOUNTER 2024-08-18 20:57 | Emergency (ER) | payer OTHER, MEDICAID ==
[~2024-08-18] VITALS: Ht 154.9 cm; Wt 46.0 kg
[~2024-08-18 20:57] MED LIST changes: +ASPI-1406 PO; +BISA-145 PO; +CYAN-35 PO; +DOCU250C14 PO; +FOLI1TAB87 PO; -HYDR50TA40 MT; -NIFE-32 MT
[2024-08-18 21:05] VITALS: RESP 24; O2SAT 92
[2024-08-18] MEDS ORDERED: DEXTROSE 50% WATER 50ML SYRINGE IV ONE ×2 (21:25→21:43)
[2024-08-18 21:37] VITALS: BP 171/127; PULSE 45; O2SAT 100
[2024-08-18] MEDS ORDERED: NOREPINEPHRINE 8MG/250ML PMX 250 ML IV STA (21:37)
[2024-08-18] MEDS ORDERED: EPINEPHRINE 5 MG in SODIUM CHLORIDE 0.9% 245 ML IV STA (21:37)
[2024-08-18] MEDS ORDERED: VASOPRESSIN 20 UNIT in SODIUM CHLORIDE 0.9% 99 ML STA (21:37)
[2024-08-18] MEDS ORDERED: VANCOMYCIN 1G PREMIX 200 ML IV ONE (21:45)
[2024-08-18] MEDS ORDERED: SODIUM CHLORIDE 0.9% (SEPSIS BOLUS) IV ONE (21:45)
[2024-08-18] MEDS ORDERED: DEXT 5%/0.9% NACL 1,000 ML IV ONE (21:45)
[2024-08-18] MEDS ORDERED: PIPERACILLIN/TAZO 3.375G/50ML 50 ML IV ONE (21:45)
[2024-08-18] MEDS ORDERED: SODIUM CHLORIDE 0.9% 1,000 ML IV ONE (21:45)
== END 2024-08-19 01:29 ==
LOC: ER 20:57
DX: J96.01 Acute respiratory failure with hypoxia (principal); I46.9 Cardiac arrest, cause unspecified; I12.0 Hypertensive chronic kidney disease with stage 5 chronic kidney disease or end stage renal disease; N18.6 End stage renal disease; E16.2 Hypoglycemia, unspecified; I49.8 Other specified cardiac arrhythmias; Z79.82 Long term (current) use of aspirin; Z99.2 Dependence on renal dialysis; Z79.899 Other long term (current) drug therapy
CPT/HCPCS: 99291; 92950; 31500; 82962; 93005; 31720; J3490 ×3; J7042; J7050 ×2; J7030; 94002; 94014; 94070; 94664